=== PATIENT | female | born 1985 | race Caucasian/White ===

== ENCOUNTER → 2021-10-01 11:12 | Outpatient (CLI) | payer OTHER, SELFPAY ==
[2021-10-02 09:37] LABS: Estradiol 50.7 pg/mL (.); FSH 6.5 mIU/mL (.); LH 5.8 mIU/mL (.); Progesterone 10.9 ng/mL (.); Testosterone,Total 8 ng/dL (8-60)
== END ==
PROVIDERS: PCP Internal Medicine Adolescent Medicine; Visit Provider Obstetrics & Gynecology
DX: N92.6 Irregular menstruation, unspecified (principal)
CPT/HCPCS: 36415; 82670; 83001; 83002; 84144; 84403; 84443

== ENCOUNTER → 2022-05-16 08:04 | Outpatient (CLI) | payer OTHER, SELFPAY ==
[2022-05-16 08:54] LABS: Basophils # 0.1 K/mm3 (0-0.2); Basophils % 1.2 % (0.1-2.0); Eosinophils # 0.1 K/mm3 (0.0-0.4); Eosinophils % 1.6 % (0.1-12.0); Hematocrit 43.2 % (37.0-47.0); Hemoglobin 14.7 g/dL (12.2-16.2); Lymphocytes % 37.7 % (10-50); Mean Corpuscular Hemoglobin 30.5 pg (27.0-31.2); Mean Platelet Volume 9.1 fl (7.4-10.4); Monocytes # 0.3 K/mm3 (0.1-1.0); Neutrophils # 2.8 K/mm3 (1.8-7.8); Neutrophils % 53.5 % (37.0-80.0); Platelet Count 322 K/mm3 (142-424); Red Cell Distribution Width 13.2 % (11.5-17.5); White Blood Count 5.2 K/mm3 (4.8-10.8)
[2022-05-16 09:26] LABS: Alanine Aminotransferase 22 U/L (12-78); Albumin Level 4.4 g/dl (3.5-5.0); Albumin/Globulin Ratio 1.4 (1.1-1.8); Alkaline Phosphatase 64 U/L (38-126); Anion Gap 8.4 mEq/L (5-15); Aspartate Amino Transferase 27 U/L (14-36); Bilirubin,Total 0.4 mg/dl (0.2-1.3); Blood Urea Nitrogen 16 mg/dl (7-17); Calcium 9.2 mg/dl (8.4-10.2); Carbon Dioxide 30 mmol/L (22.0-30.0); Chloride 106 mmol/L (98-107); Chol/HDL Ratio 2.8 (1-3.5); Cholesterol 161 mg/dl (140-200); Estimated Glomerular Filt Rate 70 ml/min (>60); GFR (African American) 85 ML/MIN (>60); Globulin 3.1 g/dL (1.3-3.2); Glucose 93 mg/dl (74-100); HDL Cholesterol 57 mg/dl (40-60); Potassium 4.4 mmoL/L (3.5-5.1); Sodium 140 mmol/L (136-145); Total Protein,Serum 7.5 g/dl (6.3-8.2); Triglycerides 113 mg/dl (30-150); VLDL Cholesterol 23 mg/dL (0-40)
[2022-05-16 09:37] LABS: Direct LDL Cholesterol 82.44 mg/dL (100-129)
[2022-05-16 09:57] LABS: Thyroid Stimulating Hormone 1.81 uIU/mL (0.465-4.68)
== END ==
PROVIDERS: PCP Nurse Practitioner Family; Visit Provider Nurse Practitioner Family
DX: Z00.00 Encounter for general adult medical examination without abnormal findings (principal); R53.83 Other fatigue; E66.3 Overweight; Z68.30 Body mass index [BMI] 30.0-30.9, adult
CPT/HCPCS: 36415; 80053; 80061; 83036; 84443; 85025

== ENCOUNTER 2022-09-29 11:22 | Emergency (ER) | payer OTHER, SELFPAY ==
[2022-09-29 11:23] VITALS: BP 133/85; PULSE 75; RESP 18; TEMP 36.8; O2SAT 98; BMI 29.0
--- NOTE | 2022-09-29 11:29 | EXP.UTC ---
Discharge Plan Disposition Patient Disposition: Home, Self-Care Condition: Good Prescriptions Prescriptions: New amoxicillin [amoxicillin] 500 mg tablet 500 mg PO TID 10 Days Qty: 30 0RF benzonatate [benzonatate] 100 mg capsule 100 mg PO TIDP PRN (Reason: Cough) Qty: 30 0RF No Action loratadine [Claritin] 10 mg tablet 10 mg PO DAILY Slynd 4 mg (28) tablet 1 tab PO DAILY Qty: 28 11RF hydroxyzine pamoate [Vistaril] 25 mg capsule 25 mg PO BID PRN (Reason: anxiety) Qty: 30 3RF Referrals Follow up/Referrals: Santana Tran MD [Primary Care Provider] - See instructions Activity Restrictions/Add. Instructions Additional Instructions/Restrictions: Drink plenty of fluids. Take tylenol or ibuprofen for pain or fever. Take the medications as directed. Follow up with your regular doctor. GO TO THE ER FOR ANY WORSENING SYMPTOMS Don't start the oral steroids until tomorrow, since you had the shot here today. Clinical Impressions Clinical Impression: Strep throat Instructions Patient Instructions: Strep Throat, DI for Strep Throat Discharge ED Provider: Randolph Santana [facility] [place] HPI General Stated complaint: sore throat,congestion,runny nose Time Seen by Provider: 09/29/22 11:29 History of Present Illness Provider Complaint: She c/o sore throat for the past 2 days. Related Data Home Medications Medication Instructions Recorded Confirmed loratadine 10 mg tablet (Claritin) 10 mg PO DAILY 08/30/21 09/02/22 Previous Rx's Medication Instructions Recorded hydroxyzine pamoate 25 mg capsule 25 mg PO BID PRN anxiety #30 caps 03/22/22 (Vistaril) drospirenone (contraceptive) 4 mg 1 tab PO DAILY #28 tabs 09/02/22 (28) tablet (Slynd) amoxicillin 500 mg tablet 500 mg PO TID 10 days #30 tabs 09/29/22 benzonatate 100 mg capsule 100 mg PO TIDP PRN Cough #30 caps 09/29/22 Allergies Allergy/AdvReac Type Severity Reaction Status Date / Time Hydrocodone Allergy Unknown NA-NAUSEA/V Uncoded 09/02/22 09:14 OMITING [facility] Disclaimer: The information contained in this section may have been updated after the patient was seen, as this information can be updated by other users. Family History Other Diabetes Stroke Social History Smoking Status: Never smoker alcohol intake: never substance use type: denies use current occupational status: unemployed Travel in the last 8 weeks: None ROS Obtained: Yes All systems reviewed & no additional complaints except as documented Constitutional Constitutional: Reports chills and Reports fever(s) Eyes Eyes: Denies eye discharge ENT Ears, Nose, Mouth, and Throat: Reports as per HPI Cardiovascular Cardiovascular: Denies chest pain Respiratory Respiratory: Denies chest congestion and Reports cough Gastrointestinal Gastrointestingal: Reports nausea; Denies abdominal pain, constipation, cramping, diarrhea or vomiting Musculoskeletal Musculoskeletal: Denies arthralgias Integumentary/Breasts Skin/Breast: Denies rash Neurologic Neurologic: Denies paresthesias Physical Exam General General appearance: alert and in no apparent distress Head Head exam: atraumatic, normocephalic and normal inspection Eye Eye exam: Present normal appearance, PERRL and EOMI ENT ENT exam: Present mucous membranes moist and normal external ear exam Expanded ENT Exam TM/Canal exam: Bilateral TM: erythema and bulging Nose exam: Absent sinus tenderness Mouth exam: Present normal external inspection; Absent drooling Teeth exam: Present normal inspection Throat exam: Present tonsillar erythema, tonsillomegaly and tonsillar exudate Neck Neck exam: Present normal inspection, full ROM and trachea midline; Absent tenderness, meningismus or lymphadenopathy Chest Chest inspection: Present normal inspection and symmetric chest wall rise; Absent
[2022-09-29 11:38] LABS: UTC Strep Screen (Rapid) Positive (Negative)
[2022-09-29 12:19] VITALS: BP 133/85; PULSE 75; RESP 18; TEMP 36.8; O2SAT 98
== END 2022-09-29 12:19 | disposition home or self-care (01) ==
PROVIDERS: Emergency Provider Nurse Practitioner Family; PCP Internal Medicine Adolescent Medicine
DX: J02.0 Streptococcal pharyngitis (principal)
CPT/HCPCS: 87880; 96372; 99204; 99212; G0463; J0696

== ENCOUNTER 2022-12-31 10:01 | Emergency (ER) | payer OTHER, SELFPAY ==
--- NOTE | 2022-12-31 10:18 | EXP.UTC ---
Discharge Plan Disposition Patient Disposition: Home, Self-Care Condition: Good Prescriptions Prescriptions: New amoxicillin [amoxicillin] 875 mg tablet 875 mg PO Q12H Qty: 20 0RF abmaronronrtidr-wyrmwtflr-KO [Bromfed DM] 2-30-10 mg/5 mL Syrup 5 ml PO Q6H PRN (Reason: Cough) Qty: 240 0RF methylprednisolone 4 mg Tablets,Dose Pack 4 mg PO DIRECTED Qty: 21 0RF No Action loratadine [Claritin] 10 mg tablet 10 mg PO DAILY Slynd 4 mg (28) tablet 1 tab PO DAILY Qty: 28 11RF hydroxyzine pamoate [Vistaril] 25 mg capsule 25 mg PO BID PRN (Reason: anxiety) Qty: 30 3RF amoxicillin [amoxicillin] 500 mg tablet 500 mg PO TID 10 Days Qty: 30 0RF benzonatate [benzonatate] 100 mg capsule 100 mg PO TIDP PRN (Reason: Cough) Qty: 30 0RF Referrals Follow up/Referrals: Santana Tran MD [Primary Care Provider] - See instructions Activity Restrictions/Add. Instructions Additional Instructions/Restrictions: Drink plenty of fluids. Take tylenol or ibuprofen for pain or fever. Take the medications as directed. Follow up with your regular doctor. GO TO THE ER FOR ANY WORSENING SYMPTOMS Throw your tooth brush away and get a new one. Don't start the oral steroids until tomorrow, since you had the shot here today. Clinical Impressions Clinical Impression: Strep throat Stand Alone Forms Stand Alone Forms: Work/School Release Instructions Patient Instructions: Strep Throat, DI for Strep Throat Discharge ED Provider: Randolph Santana [facility] General Stated complaint: weakness, sore throat, GARCIA Time Seen by Provider: 12/31/22 10:18 History of Present Illness Provider Complaint: She states that for the past 2 days she has had worsening sore throat, fever and malaise. Related Data Home Medications Medication Instructions Recorded Confirmed loratadine 10 mg tablet (Claritin) 10 mg PO DAILY 08/30/21 09/02/22 Previous Rx's Medication Instructions Recorded hydroxyzine pamoate 25 mg capsule 25 mg PO BID PRN anxiety #30 caps 03/22/22 (Vistaril) drospirenone (contraceptive) 4 mg 1 tab PO DAILY #28 tabs 09/02/22 (28) tablet (Slynd) amoxicillin 500 mg tablet 500 mg PO TID 10 days #30 tabs 09/29/22 benzonatate 100 mg capsule 100 mg PO TIDP PRN Cough #30 caps 09/29/22 amoxicillin 875 mg tablet 875 mg PO Q12H #20 tabs 12/31/22 vazxxtmfmraqteh-bxfeczjophyvadb-QJ 5 ml PO Q6H PRN Cough #240 mL 12/31/22 2 mg-30 mg-10 mg/5 mL oral syrup (Bromfed DM) methylprednisolone 4 mg tablets in 4 mg PO DIRECTED #21 tabs 12/31/22 a dose pack Allergies Allergy/AdvReac Type Severity Reaction Status Date / Time Hydrocodone Allergy Unknown NA-NAUSEA/V Uncoded 09/02/22 09:14 OMITING [facility] Disclaimer: The information contained in this section may have been updated after the patient was seen, as this information can be updated by other users. Family History Other Diabetes Stroke Social History Smoking Status: Never smoker alcohol intake: never substance use type: denies use current occupational status: unemployed Travel in the last 8 weeks: None ROS Obtained: Yes All systems reviewed & no additional complaints except as documented Constitutional Constitutional: Reports chills and Reports fever(s) Eyes Eyes: Denies eye discharge ENT Ears, Nose, Mouth, and Throat: Reports as per HPI Cardiovascular Cardiovascular: Denies chest pain Respiratory Respiratory: Denies chest congestion and Reports cough Gastrointestinal Gastrointestingal: Reports nausea; Denies abdominal pain, constipation, cramping, diarrhea or vomiting Musculoskeletal Musculoskeletal: Denies arthralgias Integumentary/Breasts Skin/Breast: Denies rash Neurologic Neurologic: Denies paresthesias Physical Exam General General appearance: alert and in no apparent distress
[2022-12-31 10:22] VITALS: BP 141/95; PULSE 104; RESP 16; TEMP 36.8; O2SAT 100; BMI 29.0
[2022-12-31 10:55] VITALS: BP 141/95; PULSE 104; RESP 16; TEMP 36.6; O2SAT 99
== END 2022-12-31 10:56 | disposition home or self-care (01) ==
PROVIDERS: Emergency Provider Nurse Practitioner Family; PCP Internal Medicine Adolescent Medicine
DX: J02.0 Streptococcal pharyngitis (principal); R50.9 Fever, unspecified; R05.9 Cough, unspecified; R53.81 Other malaise
CPT/HCPCS: 96372; 99212; 99214; G0463; J0696

== ENCOUNTER 2023-12-24 10:08 | Outpatient (CLI) | payer OTHER, SELFPAY ==
--- NOTE | 2023-12-24 10:14 | MM_ITS ---
PROCEDURE INFORMATION: Exam: MG Bilateral Screening 3D Mammography Exam date and time: 12/24/2023 10:05 AM Age: 38 years old Clinical indication: Screening mammogram TECHNIQUE: Imaging protocol: Bilateral Screening tomosynthesis and 2D mammography including computer-aided detection (CAD) when performed. COMPARISON: No relevant prior studies available. FINDINGS: MAMMOGRAPHY: Breast composition: There are scattered areas of fibroglandular density. Mass: None. Architectural distortion: No new or suspicious architectural distortion. Calcifications: No new or suspicious calcifications are present Asymmetric density: No new or suspicious asymmetric density is present Skin thickening: None. Axillary adenopathy: None. IMPRESSION: No mammographic evidence of malignancy. Recommend annual screening mammography unless otherwise clinically indicated. ASSESSMENT: BI-RADS category 1: Negative.
== END 2023-12-24 23:59 | disposition home or self-care (01) ==
LOC: RAD 10:08
PROVIDERS: PCP Internal Medicine Adolescent Medicine; Visit Provider Nurse Practitioner Family
DX: Z00.00 Encounter for general adult medical examination without abnormal findings (principal); Z12.31 Encounter for screening mammogram for malignant neoplasm of breast
CPT/HCPCS: 77063; 77067

== ENCOUNTER 2025-01-13 10:21 | Outpatient (CLI) | payer OTHER, SELFPAY ==
--- OUTSIDE RECORDS SUMMARY | 2024-07-17 17:30 | XMS_ITS ---
Author Organization [facility] Address [address] [facility] [address] [place] [address] Care Team Providers Care Centrifugal Casting Machine Operator Name Role Phone Santana Tran Primary Care Provider McAlla Dennis Unavailable [phone] Migration, Provider Unavailable Unavailable Allergies Allergen (clinical drug ingredient) Drug/Non Drug Allergy documented on EMR Reaction Allergy Type Onset Date Status LORTAB (uncoded) hives, sweaty, vomiting Allergy Active [facility]IT [facility] Encounter Medications Medication SIG (Take, Route, Frequency, Duration) Notes Start Date End Date Status Wpa-Gt-Mkofkchy TRIPHASIC (0.025 MG-0.18 MG)-(0.025 MG-0.215 MG)-(0.025 MG-0.25 MG) 1 TAB(S) ORALLY ONCE A DAY *Please review and pick correct strength[facility]formulation [facility] options. If intended option is not shown, discontinue and re-order from Quick Search* Active Diclofenac Sodium 75 MG 1 tab(s) orally 2 times a day; Duration: 30 days Active Encounters Encounter Location Date Provider Diagnosis [facility] [address] [facility] [address] [place] [address] 07/17/2024 Provider Migration Acute pain of left knee M25.562 Assessments Encounter Date Diagnosis (ICD Code) Assessment Notes Treatment Notes Treatment Clinical Notes Section Notes 07/17/2024 Acute pain of left knee (ICD-10 - M25.562) Plan Of Treatment Medication Medication Name Sig Start Date Stop Date Notes Diclofenac Sodium 75 MG 1 tab(s) orally 2 times a day; Duration: 30 days Progress Notes * Sanam REZA ADOB:1985 (39 yo F)Acc No.[id number]:07/17/2024 Patient: Sanam LUNA Provider: Madelyn Gardner :1985 A ge:38 Y S ex:Female Date:07/17/2024 Address:[facility] [address], [place], [id number] Pcp:Santana Tran Subjective: * Chief Complaints: * 1 . Multum To [facility] Conversion Encounter. * Medical History: * Medications: T aking Cds-Zk-Fonphnlc TRIPHASIC (0.025 MG-0.18 MG)-(0.025 MG-0.215 MG)-(0.025 MG-0.25 MG) TABLET 1 TAB(S) ORALLY ONCE A DAY , Notes to Pharmacist: *Please review and pick correct [facility]. If intended option is not shown, discontinue and re-order from Quick Search* * Allergies: L ORTAB: hives, sweaty, vomiting. Objective: * Vitals: Assessment: * Assessment: 1. A cute pain of left knee - M25.562 Plan: * Treatment: * * Electronic signature of Prov ider Migration on 01/13/2025 at 10:24 AM EDT Sign off status: Pending * Provider: Madelyn Gardner Date: 0 07/17/2024 Generated for Vitor saldivar/Umair/Artitting on: 1 10:24 AM EDT
--- OUTSIDE RECORDS SUMMARY | 2025-01-13 10:24 | XMS_ITS | Patient Health Record ---
Author Organization [facility]ly [facility] Address [address] [facility] [address] [place] [address] Care Team Providers Care Sand Hauler Name Role Phone Santana Tran Primary Care Provider [phone] [place], Alla Unavailable [phone] Migration, Provider Unavailable Unavailable Allergies Allergen (clinical drug ingredient) Drug/Non Drug Allergy documented on EMR Reaction Allergy Type Onset Date Status LORTAB (uncoded) hives, sweaty, vomiting Allergy Active Medications Medication SIG (Take, Route, Frequency, Duration) Notes Start Date End Date Status Dxe-Yt-Xrupozmw TRIPHASIC (0.025 MG-0.18 MG)-(0.025 MG-0.215 MG)-(0.025 MG-0.25 MG) 1 TAB(S) ORALLY ONCE A DAY *Please review and pick correct strength-formulation from [facility] options. If intended option is not shown, discontinue and re-order from Quick Search* Active Diclofenac Sodium 75 MG 1 tab(s) orally 2 times a day; Duration: 30 days Active Immunizations Vaccine Route Administration Date Status Comme nts Influenza-Fluzone 3+years (NON-MEDICARE) IM Intramuscular 02/10/2015 Administered Fluvirin--Influenza vaccine 3+ year IM Intramuscular 02/18/2008 Administered Fluvirin--Influenza vaccine 3+ year IM Intramuscular 02/04/2012 Administered Fluvirin--Influenza vaccine 3+ year IM Intramuscular 02/02/2013 Administered Social History Tobacco Use: Social History Observation Description Date Details (start date - stop date) Former Smoker NA - NA Smoking: Question Answer Notes Are you a: former smoker How long has it been since you last smoked? > 10 years Problems Problem Type SNOMED Code ICD Code Onset Dates Problem Status W/U Status Risk Notes Problem Psychophysiologic insomnia (899568607) Psychophysiologic insomnia (F51.04) Active confirmed Problem Body mass index 30.00 to 34.99 (792178727059467) BMI 31.0-31.9,adult (Z68.31) Active confirmed Problem Body mass index 30+ - obesity (476693168) BMI 30.0-30.9,adult (Z68.30) Active confirmed Problem Generalized anxiety disorder (16704319) DANIA (generalized anxiety disorder) (F41.1) Active confirmed Encounters Encounter Location Date Provider Diagnosis [facility] [address] [place] [address] 07/17/2024 Provider Migration Acute pain of left knee M25.562 Assessments Encounter Date Diagnosis (ICD Code) Assessment Notes Treatment Notes Treatment Clinical Notes Section Notes 07/17/2024 Acute pain of left knee (ICD-10 - M25.562) Plan Of Treatment Pending Test Test Name Order Date C-URINE CULTURE 08/26/2011 Urine Culture, Routine 09/13/2011 M-Complete Blood Count Auto Diff 023 M-Comprehensive Metabolic Panel 04/30/19 23 M-Hemoglobin A1C 04/30/2022 M-Lipid Panel 04/30/2022 M-Thyroid Stimulating Hormone 04/30/2022 Insurance Providers Payer Name Payer Address Payer Phone Subscriber Number Group Number Insured Name Patient Relationship to Insured Coverage Start Date Coverage End Date [employer] [facility] [address] [address] [place] [address] [id number] Sanam Moore Self - patient is the insured Medical (General) History Medical History History ICD Code recurrent uti Hemp oil- anxiety Hospitalization History Reason Date(Month/Year) Childbirth x3
--- OUTSIDE RECORDS SUMMARY | 2025-01-13 10:24 | XMS_ITS | Clinical Summary ---
Author Organization [facility] Address [address] [place] [address] Care Team Providers Care Sourcing Consultant Name Role Phone Provider, No Known Primary Care Provider Unavail able Allergies Active Allergy Reactions Criticality Noted Date Comments Hydrocodone Hives 02/22/2019 Medications No known medications Family History Medical History Relation Name Comments Stroke Father Relation Name Status Comments Father Social History Tobacco Use Types Packs/Day Years Used Date Smoking Tobacco: Former Alcohol Use Standard Drinks/Week Comments No 0 (1 standard drink = 0.6 oz pur e alcohol) AUDIT-C Answer Date Recorded Frequency of Alcohol Consumption Never 02/22/2019 Average Number of Drinks Not on file 019 Frequency of Binge Drinking Not on file 02/12 Abuse Screen Answer Date Recorded Unsafe at Home or Work/School Not on file Feels Threatened by Someone? Not on file 03/2023 Does Anyone Keep You from Co ntacting Others or Doint Things Outside the Home? Not on file 01/23/2023 Physical Sign of Abuse Present Not on file 1 Housing Stability Answer Date Recorded Current Living Arrangements Not on file 01/12 Potentially Unsafe Housing Conditions Not on mike e 01/23/2023 Family and Community Support Answer Sukhjinder e Recorded Help with Day-to-Day Activities Not on file 01/23/2023 Lonely or Isolated Not on file 01/23/2023 Employment Answer Date Recorded Do you want help finding or keeping work or a shaneka b? Not on file 01/23/2023 Disabilities Answer Date Recorded Concentrating, Remembering, or Making Decisions Difficulty Not on file 01/23/2023 Doing Errands Independently Difficulty Not on fi le 01/23/2023 Education Answer Date Recorded Help with school or training? Not on file Preferred Language Not on file 01/23/2023 Comments No Sex and Gender Information Value Date Recorded Sex Assigned at Not on file Legal Sex Female 1:27 PM EST Gender Identity Not on file Sexual Orientation Not on file Last Filed Vital Signs Vital Sign Reading Time Taken Comments Blood Pressure 126/82 02/22/2019 1:36 PM EST Pulse 84 02/22/2019 1:36 PM EST Temperature 37.2 C (98.9 F) 02/22/2019 1:36 PM EST Respiratory Rate 12 02/22/2019 1:36 PM EST Oxygen Saturation 98% 02/22/2019 1:36 PM EST Inhaled Oxygen Concentration - - Weight 78.3 kg (172 lb 9.6 oz) 02/22/2019 1:36 P M EST Height 167.6 cm (5' 6 ) 02/22/2019 1:36 PM EST Body Mass Index 27.86 02/22/2019 1:36 PM EST Plan of Treatment Health Maintenance Due Date Last Done Comments Annual Gynecologic Pelvic an d Breast Exam 1985 TDAP/TD VACCINES (1 - Tdap) 10/16/2002 ANNUAL PHYSICAL 02/22/2019 HEPATITIS C SCREENING 02/22/2019 MAMMOGRAM 2023 INFLUENZA VACCINE 11/12/2024 Pneumococcal Vaccine 0-49 Aged Out No longer eligible based on patient's age to complete this topic Insurance Care Teams Sourcing Consultant Relationship Specialty Start Date End Date Provider, No Known [facility] [place] [address] PCP - General 02/22/19
--- NOTE | 2025-01-13 10:30 | MM_ITS ---
PROCEDURE INFORMATION: Exam: MG Bilateral Screening 3D Mammography Exam date and time: 01/13/2025 10:28 AM Age: 39 years old Clinical indication: Screening examination TECHNIQUE: Imaging protocol: Bilateral Screening tomosynthesis and 2D mammography including computer-aided detection (CAD) when performed. COMPARISON: MG MM DIG SCREENING MAMM BI W/CAD 12/24/2023 10:05 AM FINDINGS: MAMMOGRAPHY: Breast composition: There are scattered areas of fibroglandular density. Mass: Questionable indistinct 0.7 cm mass in the lower-inner quadrant of the right breast, middle depth. Architectural distortion: None. Calcifications: No suspicious calcifications. Asymmetric density: None. Skin thickening: None. Axillary adenopathy: None. IMPRESSION: Patient to be recalled for spot compression views of the right breast in the CC and MLO projections, a full 90 degree lateral view, and right breast ultrasound for further evaluation of a right breast mass. ASSESSMENT: BI-RADS Category 0: Incomplete- Need Additional Imaging Evaluation.
== END 2025-01-13 23:59 | disposition home or self-care (01) ==
LOC: RAD 10:22
PROVIDERS: PCP Internal Medicine Adolescent Medicine; Visit Provider Obstetrics & Gynecology
DX: Z12.31 Encounter for screening mammogram for malignant neoplasm of breast (principal); R92.323 Mammographic fibroglandular density, bilateral breasts; R92.8 Other abnormal and inconclusive findings on diagnostic imaging of breast
CPT/HCPCS: 77063; 77067

== ENCOUNTER 2025-01-24 09:49 | Outpatient (CLI) | payer OTHER, SELFPAY ==
--- OUTSIDE RECORDS SUMMARY | 2025-01-24 09:54 | XMS_ITS | Clinical Summary ---
[facility] Address [address] [place] [address] Care Team Providers Care Commuter Train Operator Name Role Phone Provider, No Known Primary [...] to complete this topic Insurance Care Teams Commuter Train Operator Relationship Specialty Start Date End Date Provider, No Known [facility] [place] [address] PCP - General 02/22/19
--- NOTE | 2025-01-24 10:00 | US_ITS ---
PROCEDURE INFORMATION: Exam: US Right Breast, Complete Exam date and time: 01/24/2025 9:58 AM Age: 39 years old Clinical indication: Patient recalled for further evaluation of a right breast mass TECHNIQUE: Imaging protocol: Complete ultrasound of all four quadrants of the right breast and the retroareolar regions, including ultrasound of the axilla when performed. COMPARISON: MG MM DIG SCREENING MAMM BI W/CAD 01/13/2025 10:28 AM FINDINGS: ULTRASOUND: Breast ultrasound findings: Sonographic images of the right breast including the retroareolar region, all 4 quadrants and the axilla do not demonstrate any solid masses. 0.8 cm cyst in the 4 o'clock axis 3 cm from the nipple. This corresponds to the mass on mammography. No architectural distortion or acoustical shadowing. No skin thickening or axillary adenopathy. IMPRESSION: Mass on screening mammography corresponds to underlying cystic change sonographically. There is no mammographic evidence of malignancy.Annual bilateral mammographic screening is recommended unless otherwise clinically indicated. ASSESSMENT: BI-RADS Category 2: Benign.
== END 2025-01-24 23:59 | disposition home or self-care (01) ==
LOC: RAD 09:50
PROVIDERS: PCP Internal Medicine Adolescent Medicine; Visit Provider Obstetrics & Gynecology
DX: N60.01 Solitary cyst of right breast (principal)
CPT/HCPCS: 76641

== ENCOUNTER 2025-02-02 10:42 | Outpatient (CLI) | payer OTHER, SELFPAY ==
--- OUTSIDE RECORDS SUMMARY | 2024-07-17 17:30 | XMS_ITS ---
Author Organization [facility] Address [address] [facility] [address] [place] [address] Care Team Providers Care Customer Counter Representative Name Role Phone Santana Tran Primary Care Provider McAlla Dennis Unavailable [phone] Migration, Provider Unavailable Unavailable Allergies Allergen (clinical drug ingredient) Drug/Non Drug Allergy documented on EMR Reaction Allergy Type Onset Date Status LORTAB (uncoded) hives, sweaty, vomiting Allergy Active [facility] Encounter Medications Medication SIG (Take, Route, Frequency, Duration) Notes Start Date End Date Status Pcs-Cz-Byutuduj TRIPHASIC (0.025 MG-0.18 MG)-(0.025 MG-0.215 MG)-(0.025 MG-0.25 MG) 1 TAB(S) ORALLY ONCE A DAY *Please review and pick correct [facility]ulation [facility] options. If intended option is not shown, discontinue and re-order from Quick Search* Active Diclofenac Sodium 75 MG 1 tab(s) orally 2 times a day; Duration: 30 days Active Encounters Encounter Location Date Provider Diagnosis [facility] [address] [facility] [address] [place] [address] 07/17/2024 Provider Migration Acute pain of left [...] * Sanam REZA ADOB:1985 (39 yo F)Acc No.[id number]:07/17/2024 Patient: Sanam LUNA Provider: Madelyn Gardner :1985 A ge:38 Y S ex:Female Date:07/17/2024 Address:[facility] [address], [place], [id number] Pcp:Santana Tran Subjective: * Chief Complaints: * 1 . Multum To Medispan Conversion Encounter. * Medical History: * Medications: T aking Qal-Bq-Ehcoltvb TRIPHASIC (0.025 MG-0.18 MG)-(0.025 MG-0.215 MG)-(0.025 MG-0.25 MG) TABLET 1 TAB(S) ORALLY ONCE A DAY , Notes to Pharmacist: *Please review and pick correct [facility]. If intended option is not shown, discontinue and re-order from Quick Search* * Allergies: L ORTAB: hives, sweaty, vomiting. Objective: * Vitals: Assessment: * Assessment: 1. A cute pain of left knee - M25.562 Plan: * Treatment: * * Electronic signature of Prov ider Migration on 02/02/2025 at 11:02 AM EDT Sign off status: Pending * Provider: Mad[place] Gardner Date: 0 07/17/2024 Generated for Vitor saldivar/Umair/Artitting on: 1 11:02 AM EDT
--- OUTSIDE RECORDS SUMMARY | 2025-02-02 11:02 | XMS_ITS | Clinical Summary ---
[facility] Organization [facility] Address [address] [place] [address] Care Team Providers Care Beta Tester Name Role Phone Provider, No Known Primary [...] to complete this topic Insurance Care Teams Beta Tester Relationship Specialty Start Date End Date Provider, No Known [facility] [place] [address] PCP - General 02/22/19
--- OUTSIDE RECORDS SUMMARY | 2025-02-02 11:03 | XMS_ITS | Patient Health Record ---
Author Organization [facility] Address [address] [facility] [address] [place] [address] Care Team Providers Care Grain Thresher Name Role Phone Santana Tran Primary Care Provider McSonny, Alla Unavailable [phone] Migration, Provider Unavailable Unavailable Allergies Allergen (clinical drug ingredient) Drug/Non Drug Allergy documented on EMR Reaction Allergy Type Onset Date Status LORTAB (uncoded) hives, sweaty, vomiting Allergy Active Medications Medication SIG (Take, Route, Frequency, Duration) Notes Start Date End Date Status Emi-Uv-Bhibgfhm TRIPHASIC (0.025 MG-0.18 MG)-(0.025 MG-0.215 MG)-(0.025 MG-0.25 MG) 1 TAB(S) ORALLY ONCE A DAY *Please review and pick correct strength-formulation from [employer] options. If intended option is not shown, [...] W/U Status Risk Notes Problem Psychophysiologic insomnia (627653269) Psychophysiologic insomnia (F51.04) Active confirmed Problem Body mass index 30.00 to 34.99 (278443859589291) BMI 31.0-31.9,adult (Z68.31) Active confirmed Problem Body mass index 30+ - obesity (128868851) BMI 30.0-30.9,adult (Z68.30) Active confirmed Problem Generalized anxiety disorder (73891518) DANIA (generalized anxiety disorder) (F41.1) Active confirmed Encounters Encounter Location Date Provider Diagnosis [facility] [address] [place] [address] 07/17/2024 Provider Migration Acute pain of left [...] Coverage Start Date Coverage End Date [employer] [facility] [address] [address] [place] [address] [id number] Sanam Moore Self - patient is the insured Medical (General) History Medical History History ICD Code recurrent uti Hemp oil- anxiety Hospitalization History Reason Date(Month/Year) Childbirth x3
== END 2025-02-02 23:59 | disposition home or self-care (01) ==
LOC: RAD 10:43
PROVIDERS: PCP Internal Medicine Adolescent Medicine; Visit Provider Obstetrics & Gynecology
DX: Z12.31 Encounter for screening mammogram for malignant neoplasm of breast (principal); R92.8 Other abnormal and inconclusive findings on diagnostic imaging of breast